=== PATIENT | female | born 1965 | race Caucasian/White ===

== ENCOUNTER 2021-12-02 13:55 | Emergency (ER) | payer MEDICAID ==
[~2021-12-02] VITALS: Ht 160 cm; Wt 72.6 kg
--- NOTE | 2021-12-02 14:02 | NUR ---
[email or web address], medical screening exam in progress
[2021-12-02] MEDS ORDERED: CLOT15CR36 TP (14:13)
--- NOTE | 2021-12-02 14:29 | NUR ---
Patient discharged to home in stable condition and brisk steady gait. Written and verbal after care instructions given. Patient verbalized understanding and compliance of instructions. Stressed follow up with primary doctor and skin doctor or return to ER for worsening s/s.
== END 2021-12-02 14:29 | disposition home or self-care (01) ==
LOC: ER 13:59
DX: R21 Rash and other nonspecific skin eruption (principal)
CPT/HCPCS: A4663